=== PATIENT | female | born 1985 | race Caucasian/White ===

== ENCOUNTER 2017-11-30 11:25 | Outpatient (CLI) | payer BC ==
[~2017-11-30] VITALS: Ht 165.1 cm; Wt 89.5 kg
[2017-11-30 10:47] VITALS: BP 118/76; PULSE 82; TEMP 998.1
[~2017-11-30 11:25] MED LIST: MACROBID 1100 MG/CAP PO; MOTRIN 600600 MG/TAB PO; PERCOCET 325 MG1 TA2 PO; PRENATAL1 TA7 PO; REGLAN 10MG10 MG/TAB PO
[2017-11-30 11:55] VITALS: BP 118/76; PULSE 82; TEMP 98.1
[2017-11-30 12:20] VITALS: BP 118/76; PULSE 82
== END 2017-11-30 13:40 | disposition home or self-care (01) ==
LOC: LDRO 11:25 → LDR 11:35 → LDRO 13:40
DX: O32.1XX0 Maternal care for breech presentation, not applicable or unspecified (principal); Z3A.37 37 weeks gestation of pregnancy
CPT/HCPCS: OP; J3105

== ENCOUNTER 2017-12-01 07:17 | Outpatient (CLI) | payer BC ==
[~2017-12-01] VITALS: Ht 165.1 cm; Wt 89.5 kg
[2017-12-01 07:43] VITALS: BP 114/69; PULSE 76; TEMP 98.4
== END 2017-12-01 08:05 | disposition home or self-care (01) ==
LOC: LDRO 07:17
DX: O36.8130 Decreased fetal movements, third trimester, not applicable or unspecified (principal); Z3A.37 37 weeks gestation of pregnancy

== ENCOUNTER 2017-12-05 23:17 | Inpatient (IN) | payer BC ==
[~2017-12-05] VITALS: Ht 165.1 cm; Wt 87.3 kg
[2017-12-05 23:30] VITALS: BP 124/70; PULSE 73; TEMP 97.8
[2017-12-06] VITALS (17 sets, daily range): BP systolic 89–145; BP diastolic 43–74; PULSE 66–96; TEMP 97.6–98.7
[2017-12-06 02:16] LABS: BASO % 0.2 % (0.0-2.0); EOS % 0.2 % (0-4.0); GRAN # 13.4 (1.4-6.5); GRAN % 83.4 % (42.2-75.2); HEMOGLOBIN 12.1 g/dl (12.5-16.0); LYMPH # 1.6 (1.2-3.4); LYMPH % 10.2 % (20.0-51.0); MEAN CELL VOLUME 91 fl (80.0-100.0); MEAN CORPUSCULAR HEMOGLOBIN 31 pg (27.0-31.0); MEAN CORPUSCULAR HGB CONC 34 g/dl (33.0-37.0); MEAN PLATELET VOLUME 12.5 fl (7.4-10.4); MONO # 0.9 (0.1-0.6); MONO % 5.5 % (1.7-9.3); PLATELET COUNT 184 K/mm3 (130-400); REDCELL DISTRIBUTION WIDTH-CV 13.2 % (11.5-14.5)
[2017-12-06 02:18] LABS: HEMATOCRIT 35.4 % (37.0-47.0)
[2017-12-07 03:00] VITALS: BP 120/64; PULSE 76; TEMP 98.4
[2017-12-07 07:23] VITALS: BP 116/67; PULSE 73; TEMP 979
[2017-12-07 15:30] VITALS: BP 109/62; PULSE 78; TEMP 98.2
[2017-12-07 22:00] VITALS: BP 116/70; PULSE 80; TEMP 98.1
[2017-12-08 08:30] VITALS: BP 115/70; PULSE 75; TEMP 98.1
[2017-12-08] MEDS ORDERED: IBU600 MG PO (08:52)
[2017-12-08] MEDS ORDERED: PERCOCET 325 MG1 TA2 PO (08:53)
== END 2017-12-08 12:50 | disposition home or self-care (01) | DRG 775 ==
LOC: LDRO 23:17 → OB 23:18 → LDR 23:18 → OB 12-06 07:15
PROVIDERS: Obstetrics & Gynecology
PROC: 10E0XZZ Delivery of Products of Conception, External Approach (ICD-10-PCS; principal; 2017-12-06)
PROC: 0HQ9XZZ Repair Perineum Skin, External Approach (ICD-10-PCS; 2017-12-06)
DX: O70.0 First degree perineal laceration during delivery (principal); Z3A.38 38 weeks gestation of pregnancy; Z37.0 Single live birth
CPT/HCPCS: J2590

== ENCOUNTER 2019-06-20 18:31 | Emergency (ER) | payer OTHER ==
[~2019-06-20] VITALS: Ht 162.6 cm; Wt 72.7 kg
[~2019-06-20 18:31] MED LIST changes: +IBU600 MG PO
[2019-06-20 19:01] LABS: BASO % 0.3 % (0.0-2.0); EOS # 0.1 (0.0-0.7); EOS % 0.9 % (0-4.0); GRAN # 7.8 (1.4-6.5); GRAN % 67.9 % (42.2-75.2); HEMATOCRIT 43.2 % (37.0-47.0); HEMOGLOBIN 14.8 g/dl (12.5-16.0); LYMPH % 25.8 % (20.0-51.0); MEAN CELL VOLUME 89 fl (80.0-100.0); MEAN CORPUSCULAR HEMOGLOBIN 31 pg (27.0-31.0); MEAN CORPUSCULAR HGB CONC 34 g/dl (33.0-37.0); MONO # 0.6 (0.1-0.6); MONO % 4.8 % (1.7-9.3); PLATELET COUNT 266 K/mm3 (130-400); RED BLOOD COUNT 4.85 M/mm3 (4.10-5.30)
[2019-06-20 19:14] LABS: ALANINE AMINOTRANSFERASE 24 U/L (9-52); ALBUMIN 4.8 gm/dL (3.5-5.0); ALKALINE PHOSPHATASE 64 U/L (50-136); ANION GAP 11 mmol/L (7-16); AST,SGOT 21 U/L (15-37); BILIRUBIN,TOTAL 0.8 mg/dL (0.0-1.0); BLOOD UREA NITROGEN 15 mg/dL (7-17); CALCIUM 9.7 mg/dL (8.4-10.2); CARBON DIOXIDE 28 mmol/L (22-30); CHLORIDE 100 mmol/L (98-107); CREATININE, serum 0.77 (0.52-1.25); GLUCOSE 106 mg/dL (74-106); LIPASE 146 U/L (23-300); POTASSIUM 4.3 mmol/L (3.4-5.0); SODIUM 139 mmol/L (137-145); TOTAL PROTEIN 8.1 gm/dL (6.4-8.2)
[2019-06-20 19:18] LABS: C-REACTIVE PROTEIN < 0.5 mg/dL (0.0-0.9)
[2019-06-20 20:07] LABS: COLLECTION METHOD CLEAN CATCH
[2019-06-20 20:12] LABS: MUCOUS Present /lpf; PH 6 (5-8); SQUAMOUS EPITHELIAL 0-2 /hpf; URINE APPEARANCE Clear; URINE BACTERIA Rare /hpf; URINE BILIRUBIN Negative (NEGATIVE); URINE BLOOD Negative (NEGATIVE); URINE COLOR Yellow; URINE GLUCOSE Negative (NEGATIVE); URINE KETONE Negative (NEGATIVE); URINE LEUKOCYTE ESTERASE Negative (NEGATIVE); URINE NITRATE Negative (NEGATIVE); URINE PROTEIN(semi-quant) Negative (NEGATIVE); URINE RBC 0-2 /hpf; URINE UROBILINOGEN Negative (NEGATIVE)
[2019-06-20 21:20] VITALS: BP 119/81; PULSE 61; TEMP 98.8
== END 2019-06-20 21:30 | disposition home or self-care (01) ==
LOC: COL.ER 18:31
PROVIDERS: Emergency Medicine
DX: N83.01 Follicular cyst of right ovary (principal); R10.32 Left lower quadrant pain
CPT/HCPCS: J2405; J3010; J7030; Q9967

== ENCOUNTER → 2020-10-09 | Outpatient (CLI) | payer OTHER | LOC: MC.RAD 07:45 | DX: N63.10 Unspecified lump in the right breast, unspecified quadrant (principal) ==

== ENCOUNTER → 2022-09-02 | Outpatient (CLI) | payer OTHER | LOC: COL.RAD 13:59 | DX: R59.0 Localized enlarged lymph nodes (principal) ==